=== PATIENT | female | born 1965 | race Caucasian/White ===

== ENCOUNTER 2020-07-07 08:27 | Emergency (ER) | payer OTHER ==
[2020-07-07 08:48] VITALS: BP 156/98; PULSE 73; TEMP 97.8; BMI 26.1
[2020-07-07] MEDS ORDERED: MAG HYDROX/AL HYDROX/SIMETH 30 ML UNIT-DOSE CUP PO ONE (09:04)
[2020-07-07] MEDS ORDERED: SUCRALFATE 1 GM/10 ML UNIT DOSE CUPS PO ONE (09:05)
[2020-07-07] MEDS ORDERED: SUCRALFATE 1 GM/10 ML UNIT DOSE CUPS ONE ×2 (09:20→09:24)
[2020-07-07] MEDS ORDERED: MAG HYDROX/AL HYDROX/SIMETH 30 ML UNIT-DOSE CUP ONE (09:20)
[2020-07-07 09:54] LABS: ALBUMIN 3.7 g/dl (3.4-5.0); BILIRUBIN,TOTAL 0.7 mg/dl (0.2-1); CREATININE 0.7 mg/dl (0.55-1.3); POTASSIUM 4.1 mmol/L (3.5-5.1); TOT PROT 6.5 g/dl (6.4-8.2)
[2020-07-07 09:56] LABS: MCH 29.8 pg (25.7-33.7); WHITE BLOOD COUNT 4.5 K/mm3 (4.0-10.8)
[2020-07-07 09:58] LABS: BASO % 1.6 % (0-2.0); EOS % 4.9 % (0-4.5); HEMATOCRIT 41.1 % (32.4-45.2); HEMOGLOBIN 13.9 GM/dl (10.7-15.3); LYMPH % 28.5 % (8-40); MCHC 33.7 g/dl (32.0-36.0); MEAN CELL VOLUME 88.4 fl (80-96); MEAN PLT VOLUME 8.6 fl (7.5-11.1); MONO % 5.9 % (3.8-10.2); NEUT % 59.1 % (42.8-82.8); PLATELET COUNT 247 K/MM3 (134-434); RBC 4.65 M/mm3 (3.60-5.2); RDW 12.4 % (11.6-15.6)
== END 2020-07-07 11:41 | disposition home or self-care (01) ==
LOC: FER 08:27
DX: R13.10 Dysphagia, unspecified (principal)
CPT/HCPCS: 36415; 71045-TC-FY; 80053; 83690; 84484; 85025; 93005; 99285-25